=== PATIENT | male | born 1990 | race African-American/Black ===

== ENCOUNTER 2016-12-18 18:40 | Emergency (ER) | payer SELFPAY ==
[2016-12-18 18:50] VITALS: BP 120/60
[2016-12-18] MEDS ORDERED: HYDROCODONE/ACETAMINOPHEN 5-325 MG TABLET PO ONE (19:28)
[2016-12-18 19:35] LABS: ABSOLUTE BASOPHILS # (AUTO) 0.1 10^3/uL (0.0-0.2); ABSOLUTE EOSINOPHILS # (AUTO) 0.2 10^3/uL (0.0-0.6); ABSOLUTE LYMPHOCYTES (AUTO) 2.8 10^3/uL (0.5-4.7); ABSOLUTE MONOCYTES (AUTO) 0.7 10^3/uL (0.1-1.4); ABSOLUTE NEUT (AUTO) 7.8 10^3/uL (1.7-8.2); BASOPHILS % (AUTO) 0.6 % (0-2); EOSINOPHILS % (AUTO) 1.8 % (0-6); HEMATOCRIT 36.2 % (37.9-51.0); HEMOGLOBIN 12.5 g/dL (13.5-17.0); HGB HCT DIFFERENCE 1.3; LYMPHOCYTES % (AUTO) 24.2 % (13-45); MEAN CORPUSCULAR HEMOGLOBIN 29.7 pg (27.0-33.4); MEAN CORPUSCULAR HGB CONC 34.6 g/dL (32.0-36.0); MEAN CORPUSCULAR VOLUME 86 fl (80-97); MONOCYTES % (AUTO) 6.3 % (3-13); RED BLOOD COUNT 4.22 10^6/uL (4.35-5.55); RED CELL DISTRIBUTION WIDTH 12.6 % (11.5-14.0); SEGMENTED NEUTROPHILS % (AUTO) 67.1 % (42-78); WHITE BLOOD COUNT 11.6 10^3/uL (4.0-10.5)
--- NOTE | 2016-12-18 19:47 | RADIOLOGY REPORT (SQ) ---
EXAM DESCRIPTION: CHEST PA/LAT COMPLETED DATE/TIME: 12/18/2016 7:31 pm REASON FOR STUDY: pain with breathing COMPARISON: None. EXAM PARAMETERS: NUMBER OF VIEWS: two views TECHNIQUE: Digital Frontal and Lateral radiographic views of the chest acquired. RADIATION DOSE: NA LIMITATIONS: none FINDINGS: LUNGS AND PLEURA: No opacities, masses or pneumothorax. No pleural effusion. MEDIASTINUM AND HILAR STRUCTURES: No masses or contour abnormalities. HEART AND VASCULAR STRUCTURES: Heart normal size. No evidence for failure. BONES: No acute findings. HARDWARE: None in the chest. OTHER: No other significant finding. IMPRESSION: NO SIGNIFICANT RADIOGRAPHIC FINDING IN THE CHEST. TECHNICAL DOCUMENTATION: JOB ID: [id number] [employer]- All Rights Reserved
--- NOTE | 2016-12-18 19:56 | ER Document Report ---
HPI - HPI Patient complains to provider of: Lumps to lower back, left upper back pain, pain with breathing Onset: Other Onset/Duration: Gradual Quality of pain: Achy Severity: Moderate Pain Level: 4 Context: Patient states he began having lower back pain on Saturday, and when he touched his lower back he felt bumps. Denies pain radiation, denies bowel or bladder dysfunction. Patient also complains of left upper back pain which causes him pain with breathing that started this morning. Patient denies history of asthma , denies recent illness, denies fever. Patient does work in moving and storage but does not recall any injury to his back. Associated Symptoms: Hurts to breath Exacerbated by: Movement Relieved by: Denies Similar symptoms previously: No Recently seen / treated by doctor: No - ROS ROS below otherwise negative: Yes Systems Reviewed and Negative: Yes All other systems reviewed and negative - CONSTITUTIONAL Constitutional: DENIES: Fever - EENT EENT: DENIES: Congestion - NEURO Neurology: DENIES: Headache - CARDIOVASCULAR Cardiovascular: DENIES: Chest pain - RESPIRATORY Respiratory: REPORTS: Trouble Breathing - Pain with deep breathing., Coughing - GASTROINTESTINAL Gastrointestinal: DENIES: Abdominal Pain - URINARY Urinary: DENIES: Dysuria - MUSCULOSKELETAL Musculoskeletal: REPORTS: Back Pain - DERM Skin Color: Normal Skin Problems: Rash Past Medical History - General Information source: Patient - Social History Smoking Status: Never Smoker Frequency of alcohol use: Occasional Drug Abuse: Marijuana Lives with: Family Family History: Reviewed & Not Pertinent Neurological Medical History: Reports: Hx Seizures, Other - Benign brain tumor Past Surgical History: Reports: Hx Neurologic Surgery - brain tumor removal - Immunizations Hx Diphtheria, Pertussis, Tetanus Vaccination: Yes Vertical Provider Document - CONSTITUTIONAL Agree With Documented VS: Yes Exam Limitations: No Limitations General Appearance: WD/WN, No Apparent Distress - INFECTION CONTROL TRAVEL OUTSIDE OF THE [place] IN LAST 30 DAYS: No - HEENT HEENT: Atraumatic, Normal ENT Exam, Normocephalic - NECK Neck: Normal Inspection, Supple - RESPIRATORY Respiratory: Breath Sounds Normal, No Respiratory Distress, Chest Non-Tender. negative: Wheezing O2 Sat by Pulse Oximetry: 98 - CARDIOVASCULAR Cardiovascular: Regular Rate, Regular Rhythm - GI/ABDOMEN Gastrointestinal: Abdomen Soft, Abdomen Non-Tender, Normal Bowel Sounds - REPRODUCTIVE Notes: No inguinal adenopathy noted - BACK Notes: Left upper back across scapula and trapezius tender to touch. Pain reproduced with palpation and range of motion. - MUSCULOSKELETAL/EXTREMETIES Musculoskeletal/Extremeties: MAEW - NEURO Level of Consciousness: Awake, Alert, Appropriate - DERM Integumentary: Warm, Dry, Rash - scattered mildly erythematic, non fluctuant rash across lower back which cross midline. Nontender to touch, no drainage. lesions are hard and range in size up to inch. dimpling noted when squeezed. Course - Re-evaluation Re-evalutation: 12/18/16 19:51 Chest x-ray negative and labs were discussed with patient. - Vital Signs Vital signs: Temp Pulse Resp BP Pulse Ox 98.4 F 78 18 120/60 98 12/18/16 18:48 12/18/16 18:48 12/18/16 18:48 12/18/16 18:48 12/18/16 18:48 - Laboratory Result Diagrams: 12/18/16 19:25 12/18/16 19:25 Laboratory results interpreted by me: 12/18/16 19:25 WBC 11.6 H RBC 4.22 L Hgb 12.5 L Hct 36.2 L Discharge - Discharge Clinical Impression: Rash of back Muscle strain of left upper back Qualifiers: Encounter type: initial encounter Qualified Code(s): S29.012A - Strain of muscle and tendon of back wall of thorax, initial encounter Lower back pain Qualifiers: Chronicity: acute Back pain laterality: bilateral Sciatica presence: without sciatica Qualified Code(s): M54.5 - Low back pain Condition: Good Disposition: HOME, SELF-CARE Instructions: Ice Packs ([facility]), Muscle Strain ([facility]), Warm Packs ([facility]), Low Back Pain ([facility]) Additional Instructions: antibiotics as prescribed warm compresses or ice packs to back no heavy lifting for one week Prescriptions: Cephalexin [Cephalexin 500 MG Capsule] 1 cap PO QID #28 capsule Ibuprofen 800 mg PO TID PRN #30 tablet PRN Reason: Forms: Return to Work, Restricted Release
[2016-12-18 19:57] LABS: ALANINE AMINOTRANSFERASE 26 U/L (21-72); ALBUMIN 4.6 g/dL (3.5-5.0); ALKALINE PHOSPHATASE 72 U/L (38-126); ANION GAP 11 (5-19); ASPARTATE AMINO TRANSFERASE 19 U/L (17-59); BILIRUBIN,DIRECT 0.4 mg/dL (0.0-0.4); BILIRUBIN,TOTAL 1.2 mg/dL (0.2-1.3); BLOOD UREA NITROGEN 11 mg/dL (7-20); CALCIUM 9.9 mg/dL (8.4-10.2); CARBON DIOXIDE 28 mmol/L (22-30); CHLORIDE 106 mmol/L (98-107); CREATININE RESULT 0.84 mg/dL (0.52-1.25); GLUCOSE 78 mg/dL (75-110); POTASSIUM 3.9 mmol/L (3.6-5.0); SODIUM 144.8 mmol/L (137-145)
== END 2016-12-18 20:10 | disposition home or self-care (01) ==
LOC: ER 18:40
DX: R21 Rash and other nonspecific skin eruption (principal); S29.012A Strain of muscle and tendon of back wall of thorax, initial encounter; M54.5 Low back pain; X58.XXXA Exposure to other specified factors, initial encounter
CPT/HCPCS: 36415; 71020; 80053; 85025; 99283